=== PATIENT | female | born 1985 | race Caucasian/White ===

== ENCOUNTER → 2016-09-26 | Outpatient (CLI) | payer OTHER ==
[~2016-09-26] VITALS: Ht 160 cm; Wt 71.0 kg
[~2016-09-26] MED LIST: Motrin PO; PRENATAL TABLE1 EAC3 PO; Percocet 5/325,Endoc PO
[2016-09-26 09:01] VITALS: BP 117/60
== END | disposition home or self-care (01) ==
LOC: IVINF 08:55
DX: O26.892 Other specified pregnancy related conditions, second trimester (principal); Z67.91 Unspecified blood type, Rh negative; Z3A.00 Weeks of gestation of pregnancy not specified
CPT/HCPCS: 96372; J2790

== ENCOUNTER 2016-12-05 11:58 | Outpatient (CLI) | payer OTHER ==
[~2016-12-05] VITALS: Ht 160 cm; Wt 78.0 kg
[2016-12-05 12:17] VITALS: BP 121/80
[2016-12-05 15:14] VITALS: BP 110/70
[2016-12-05 19:44] VITALS: BP 110/63
[2016-12-05 20:16] VITALS: BP 108/62
== END 2016-12-05 20:30 | disposition home or self-care (01) ==
LOC: LDRP-OP 11:58 → 2WEST 11:59 → LDRP-OP 01-17 10:42
DX: O41.03X0 Oligohydramnios, third trimester, not applicable or unspecified (principal); Z3A.38 38 weeks gestation of pregnancy
CPT/HCPCS: 59025; 76805; 76818; G0378; J7120

== ENCOUNTER 2016-12-11 07:14 | Inpatient (IN) | payer OTHER ==
[2016-12-11] VITALS (18 sets, daily range): BP systolic 100–158; BP diastolic 56–81
[~2016-12-11] VITALS: Ht 157.5 cm; Wt 75.9 kg
[2016-12-11 09:25] LABS: EOSINOPHIL (%) 0.9 % (0-5); EOSINOPHIL COUNT 0.1 K/uL (0-0.3); HEMATOCRIT 31.6 % (36.0-46.0); IMMATURE GRANULOCYTE (%) 0.6 % (0.0-0.7); IMMATURE GRANULOCYTE COUNT 0.1 K/uL; INSTRUMENT ABS NEUTROPHIL CT 8.2 K/uL; LYMPHOCYTE COUNT 1.8 K/uL (1.0-2.8); MCH 27.8 PG (29.0-34.0); MCHC 32.6 G/DL (30.0-36.0); MCV 85.2 FL (83-99); MEAN PLAT.VOLUME 12.7 uM^3 (9.5-12.4); MONOCYTE COUNT 0.9 K/uL (0-0.8); NEUTROPHIL COUNT 8.2 K/uL (1.8-6.4); PLATELET COUNT 204 K/uL (156-360); RBC DIS.WIDTH-CV 13.5 % (11.8-14.6); RED BLOOD COUNT 3.71 M/uL (3.80-5.20); WHITE BLOOD COUNT 11.1 K/uL (4.1-10.2)
[2016-12-11] MEDS ORDERED: IBUPROFEN800 MG PO (18:58)
[2016-12-12 00:20] VITALS: BP 135/87
[2016-12-12 07:09] VITALS: BP 117/65
[2016-12-12 15:09] VITALS: BP 122/81
[2016-12-12] MEDS ORDERED: IBUPROFEN800 MG PO (17:03)
[2016-12-12 23:00] VITALS: BP 120/77
[2016-12-13 07:24] VITALS: BP 121/80
== END 2016-12-13 14:55 | disposition home or self-care (01) | DRG 775 ==
LOC: LDRP-OP 07:14 → 2WEST 07:15 → LDRP-OP 01-17 20:52
PROVIDERS: Nurse Practitioner
DX: O36.5930 Maternal care for other known or suspected poor fetal growth, third trimester, not applicable or unspecified (principal); Z3A.39 39 weeks gestation of pregnancy; Z37.0 Single live birth
CPT/HCPCS: 85025; C1726; J7120